=== PATIENT | male | born 1950 | race Caucasian/White ===

== ENCOUNTER → 2017-06-12 | Outpatient (CLI) | payer MEDICARE, BC ==
--- NOTE | 2017-06-12 12:50 | PCVCIMAG ---
APPROVED REPORT Exam: Stress Echocardiogram Indication: CABG Stress Nurse: Constance Dugan RN Status: routine Ht: 5 ft 7 in HR: 55 bpm BP: 108/80 mmHg Rhythm: NSR Procedure The patient underwent an Exercise Stress Test using the Dimitri Protocol. Blood pressure, heart rate, and EKG were monitored. An Echocardiogram was performed by point of care technician in four stages in quad fashion. At peak stress, four selected images were obtained and placed side by side with resting images for comparison. Stress Test Details Stress Test: Exercise stress testing was performed using a Dimitri protocol. HR Resting HR: 55 bpmMax Heart Rate (APMHR): 153 bpm Max HR Achieved: 148 bpmTarget HR (85% APMHR): 130 bpm % of APMHR: 96 HR response to stress: Normal HR response to stress BP Resting BP: 108/80 mmHg Max BP: 166/76 mmHg ECG Resting ECnd degree AV block (Mobitz I) Stress ECnd degree AV block (Mobitz I) Clinical Reason for Termination: Maximal effort Exercise duration: 12 min 31 sec Highest Stage Achieved: Stage 5: 5.0 mph at 18% grade. Exercise capacity: 15.20 METs Overall Exercise Capacity for Age: Excellent Pre-Stress Echo The resting Echocardiogram showed normal left ventricular contractility with an estimated Ejection Fraction of about 55-60%. Normal wall motion in all segments on baseline images. Post-Stress Echo The stress Echocardiogram showed normal left ventricular contractility with an estimated Ejection Fraction of about 60-65%. Normal augmentation of wall motion in all segments on post stress images. Clinical No clinical or ECG evidence for ischemia. Conclusion Clinical Response: Non-ischemic Exercise Capacity: Superior Stress ECG Response: Non-ischemic Stress Echo Images: Non-ischemic The left ventricle is normal in size and wall thickness in both the rest and stress images. Other Information Study Quality: Good <Conclusion> The left ventricle is normal in size and wall thickness in both the rest and stress images.
== END | disposition home or self-care (01) ==
LOC: PCVCIMAG 10:29
PROVIDERS: ATTEND Internal Medicine Cardiovascular Disease
DX: I25.10 Atherosclerotic heart disease of native coronary artery without angina pectoris (principal); E78.5 Hyperlipidemia, unspecified; E83.59 Other disorders of calcium metabolism; I44.1 Atrioventricular block, second degree
CPT/HCPCS: 93325; 93351

== ENCOUNTER → 2018-05-17 | Outpatient (CLI) | payer MEDICARE, BC | END | disposition home or self-care (01) | LOC: PCVCCLINIC 10:40 | PROVIDERS: ATTEND Internal Medicine Cardiovascular Disease | DX: I25.10 Atherosclerotic heart disease of native coronary artery without angina pectoris (principal); R94.31 Abnormal electrocardiogram [ECG] [EKG]; E78.00 Pure hypercholesterolemia, unspecified; I65.23 Occlusion and stenosis of bilateral carotid arteries; I44.1 Atrioventricular block, second degree; Z95.1 Presence of aortocoronary bypass graft; Z88.5 Allergy status to narcotic agent; Z87.891 Personal history of nicotine dependence; Z72.89 Other problems related to lifestyle; Z79.82 Long term (current) use of aspirin | CPT/HCPCS: 80061; 93005; G0463 ==

== ENCOUNTER → 2019-04-10 | Outpatient (CLI) | payer MEDICARE, BC ==
--- NOTE | 2019-04-10 15:26 | PCVCIMAG ---
APPROVED REPORT Study performed: 04/10/2019 10:15:49 Exam: Stress Echocardiogram Indication: CAD s/p CABG Patient Location: Echo lab Stress Nurse: Neda Aguilera RN Status: routine Ht: 5 ft 7 in HR: 46 bpm BP: 120/90 mmHg Rhythm: Bradycardia, 2nd degree Heart block Medical History Medical History: CAD s/p CABG, HTN, Hyperlipidemia Exercise History: Physically active Procedure The patient underwent an Exercise Stress Test using the Dimitri Protocol. Blood pressure, heart rate, and EKG were monitored. An Echocardiogram was performed by bench lay out technician in four stages in quad fashion. At peak stress, four selected images were obtained and placed side by side with resting images for comparison. Stress Test Details Stress Test: Exercise stress testing was performed using a Dimitri protocol. HR Resting HR: 46 bpmMax Heart Rate (APMHR): 151 bpm Max HR Achieved: 155 bpmTarget HR (85% APMHR): 128 bpm % of APMHR: 102 Recovery HR: 68 bpm HR response to stress: Normal HR response to stress BP Resting BP: 120/90 mmHg Max BP: 200/70 mmHg Recovery BP: 148/72 mmHg BP response to stress: Normal blood pressure response to stress. ECG Resting ECnd degree heart block Stress ECG: Sinus Rhythm Arrhythmia: Non-sustained VT Recovery ECG: Sinus Rhythm Clinical Reason for Termination: Maximal effort Exercise duration: 12 min 31 sec Highest Stage Achieved: Stage 4: 4.2 mph at 16% grade. Exercise capacity: 15.30 METs Overall Exercise Capacity for Age: Good Pre-Stress Echo The resting Echocardiogram showed normal left ventricular contractility with an estimated Ejection Fraction of about 55-60%. Normal wall motion in all segments on baseline images. Post-Stress Echo The stress Echocardiogram showed normal left ventricular contractility with an estimated Ejection Fraction of about 60-65%. Normal augmentation of wall motion in all segments on post stress images. Clinical No clinical or ECG evidence for ischemia. Conclusion Clinical Response: Non-ischemic Exercise Capacity: Superior Stress ECG Response: Non-ischemic Stress Echo Images: Non-ischemic The left ventricle is normal in size and wall thickness in both the rest and stress images. Trace mitral and tricuspid regurgitation. No other valvular abnormalities. Other Information Study Quality: Good <Conclusion> The left ventricle is normal in size and wall thickness in both the rest and stress images. Trace mitral and tricuspid regurgitation. No other valvular abnormalities.
== END | disposition home or self-care (01) ==
LOC: PCVCIMAG 10:25
PROVIDERS: ATTEND Internal Medicine Cardiovascular Disease
DX: I25.10 Atherosclerotic heart disease of native coronary artery without angina pectoris (principal); I44.1 Atrioventricular block, second degree; I10 Essential (primary) hypertension; Z95.1 Presence of aortocoronary bypass graft; Z91.041 Radiographic dye allergy status
CPT/HCPCS: 93325; 93351